=== PATIENT | female | born 1935 ===

== ENCOUNTER 2017-07-28 10:59 | Outpatient (CLI) | payer MEDICARE ==
--- NOTE | 2017-07-28 13:22 | XRay Report ---
Lumbar spine 3 views: History: Acute bilateral low back pain. Findings: Anterior wedging of the L1 vertebral body with superior endplate depressed. Probably Chronic fracture. Minimal decrease in height of intravertebral disc spaces. Sclerotic articular surfaces with peripheral small osteophyte suggesting degenerative changes. Most pronounced at the lumbosacral interspace and adjacent facet joint. Calcified abdominal aorta without aneurysm. Impression: Fracture L1 vertebral body probably chronic. Degenerative lumbar spine.
== END 2017-07-28 11:00 | disposition home or self-care (01) ==
LOC: SPVIMAG 10:59
PROVIDERS: ATTEND Internal Medicine
DX: S32.019A Unspecified fracture of first lumbar vertebra, initial encounter for closed fracture (principal); M25.78 Osteophyte, vertebrae; X58.XXXA Exposure to other specified factors, initial encounter; Y93.89 Activity, other specified; Y92.89 Other specified places as the place of occurrence of the external cause; Y99.8 Other external cause status
CPT/HCPCS: 72100